=== PATIENT | female | born 1975 | race Hispanic/Latino ===

== ENCOUNTER 2022-11-29 20:54 | Emergency (ER) | payer OTHER ==
[~2022-11-29] VITALS: Ht 165.1 cm; Wt 113.4 kg
[2022-11-29] MEDS ORDERED: KETOROLAC 60 MG VIAL (30MG/ML) IM ONE (21:50)
[2022-11-29 22:01] LABS: BASOPHILS % (AUTO) 0.3 % (0.0-5.0); EOSINOPHILS % (AUTO) 1.6 % (0.0-8.0); HEMATOCRIT 39.3 % (36-48); LYMPHOCYTES % (AUTO) 31.8 % (21.0-51.0); MEAN CORPUSCULAR HEMOGLOBIN 29.6 pg (27.0-33.0); MEAN CORPUSCULAR HGB CONC 34.1 g/dL (32.0-36.0); MEAN CORPUSCULAR VOLUME 86.9 fL (79-99); MONOCYTES % (AUTO) 5.7 % (3.0-13.0); NEUTROPHILS % (AUTO) 60.2 % (40.0-77.0); PLATELET COUNT (AUTO) 181 K/uL (130-400); RED BLOOD CELL COUNT(AUTO) 4.52 MIL/uL (4.00-5.50); RED CELL DISTRIBUTION WIDTH 14.7 % (11.0-15.5); WHITE BLOOD COUNT (AUTO) 9.3 K/uL (4.8-10.8)
[2022-11-29 22:13] LABS: CREATININE 0.9 mg/dL (0.5-1.5); POTASSIUM 3.4 mmol/L (3.5-5.1)
[2022-11-29 22:17] LABS: ALBUMIN 4.1 g/dL (3.5-5.0); TOTAL PROTEIN, SERUM 7.5 g/dL (6.0-8.3)
[2022-11-29] MEDS ORDERED: IOHEXOL 350 MG/ML 100ML INFUS..BTL IV ONE (22:21)
[2022-11-29] MEDS ORDERED: IBUP-1493 PO (23:26)
[2022-11-29] MEDS ORDERED: CYCL-309 PO (23:26)
[2022-11-29 23:57] VITALS: BP 132/6
== END 2022-11-29 23:59 | disposition home or self-care (01) ==
LOC: EDH 20:54
DX: M54.50 Low back pain, unspecified (principal); R10.30 Lower abdominal pain, unspecified; M54.2 Cervicalgia
CPT/HCPCS: 99285; 70450; 80053; 85025; 36415; 72125; 71260; 74177; 96372; Q9967; J1885